=== PATIENT | female | born 1960 | race Caucasian/White ===

== ENCOUNTER 2019-11-22 00:11 | Emergency (ER) | payer MEDICAID, SELFPAY ==
[2019-11-22 00:12] VITALS: BP 120/69; PULSE 79; RESP 16; TEMP 36.4; O2SAT 96; BMI 25.7
--- NOTE | 2019-11-22 00:39 | RAD_ITS ---
STUDY: X-RAY - RIGHT TIBIA AND FIBULA REASON FOR EXAM: Female, 59 years old. fell -- bruising to upper anterior rt tib fib TECHNIQUE: 2 view(s) of the tibia and fibula were obtained. COMPARISON: None. FINDINGS: Normal visualized tibia. Normal visualized fibula. There is no demonstrated acute fracture. Soft tissue swelling. No radiopaque foreign body. RAD/Tibia & Fibula 2 Views IMPRESSION: Soft tissue swelling. No radiopaque foreign body. Electronically Signed: Pernell Brennan, at 1:02 EDT Tel , Service support ,
--- NOTE | 2019-11-22 00:45 | ED.VISSUMM ---
- ER Visit Summary Date of Service: 11/22/19 Chief Complaint: Leg pain after tripping and falling on the steps History of Present Illness: The patient is a 59 F past medical history of sciatica and carpal tunnel. Prior cholecystectomy. Around 7:00 tonight she was walking up the steps fell landed right on her proximal lower leg. Did not hit her head no LOC no other complaints. No prior surgery to her right leg or knee. Complaint increasing pain. Pain with walking. Physical Examination: Well-appearing middle-aged female. Vital signs stable afebrile. H EENT exam atraumatic nontender. Pupils round reactive light. No facial trauma. No scalp tenderness or trauma. C-spine nontender. Trachea midline. Normal range of motion. Lungs clear to auscultation bilaterally. Heart regular rhythm no murmur. Chest wall nontender. Abdomen soft nontender normal bowel sounds no peritoneal signs. Pelvic girdle intact. Both upper extremities left lower extremity nontender. No signs of trauma. Neurovascular intact. Normal range of motion. No deformity. Right hip thigh and knee are nontender nonswollen. Her proximal tib-fib on the right just below the knee she has bruising and tenderness. No gross bony deformity. Distally the bones nontender. Nondeformed. Right ankle and foot are neurovascular intact with dorsi and plantar flexion. Able to wiggle her toes. Able to lift her right leg off the bed. Neurologically awake and alert with no focal motor deficits. Test Results: Right tibia and fibula x-ray 2 views read by myself the radiologist showed no acute abnormality. No fracture. Emergency Department Course and Treatment: Patient with fall and obvious contusion of the right lower leg x-ray will be obtained to evaluate for possible fracture or other injury. Repeat exam doing well at 1:48 AM. Treatment Plan: Tylenol and Motrin for pain. Ice and elevate. Increase activity as tolerated. Follow-up if not improving. Disposition: Discharge Impression: Acute fall Acute proximal right lower leg contusion This note was generated with [employer] dictation software. It may contain incorrect words, spelling, and punctuation that were not noted in review of the chart prior to signing
--- NOTE | 2019-11-22 01:50 | ED.DEP ---
ED Disposition - Plan for ED Patient: Disposition: Home or Assisted Living Instructions: ED EXTREMITY CONTUSION Lower Referrals: Liban Cordova MD [Primary Care Provider] - 1 Week if not improving Additional Instructions: Ice and elevate your right leg to decrease pain and swelling. The x-rays did not show any bony abnormality. Tylenol and Motrin for pain. This should progressively improve if not follow-up with your doctor. Increase activity as tolerated.
[2019-11-22 01:54] VITALS: BP 110/60
== END 2019-11-22 05:15 | disposition home or self-care (01) ==
PROVIDERS: Emergency Provider Emergency Medicine; PCP Family Medicine
DX: S80.11XA Contusion of right lower leg, initial encounter (principal); F17.200 Nicotine dependence, unspecified, uncomplicated; W10.9XXA Fall (on) (from) unspecified stairs and steps, initial encounter
CPT/HCPCS: 73590; 99284

== ENCOUNTER 2022-08-16 21:07 | Emergency (ER) | payer MEDICAID, SELFPAY ==
[2022-08-16 21:07] VITALS: BP 152/92; PULSE 88; RESP 16; TEMP 36.7; O2SAT 93; BMI 34.2
--- NOTE | 2022-08-16 22:57 | ED.VIS.BACK ---
HPI History of Present Illness Chief Complaint: Back Informant: patient Narrative Narrative: Patient states all day today her chronic low back pain that she has had since she had a [place]disce[place] [address] Love has been worse due to overuse. No acute injury. She has chronic discomfort in her low back, it is the same pain that is worse than usual. She chronically has intermittent shooting pains down both lower extremities, that is no different today and not currently present. She denies any bowel or bladder dysfunction or saddle anesthesia. She is looking for something for pain right now, she states I am not looking to get prescriptions for narcotics. Additionally, she states for months she has been having intermittent right upper quadrant pain. She is a little bit of it right now. She states it seems to get better after she eats, making it temporarily go away. No radiating into the back, no jaundice, itching, confusion, other neurologic symptoms. She denies any melena or bright red blood per rectum. No nausea or vomiting. PFSH PFSH no medical history Home Medications meloxicam 7.5 mg tablet 7.5 mg PO DAILY #14 tabs 08/16/22 [Rx Last Taken Unknown] pantoprazole 40 mg tablet,delayed release 40 mg PO DAILY #30 tabs 08/16/22 [Rx Last Taken Unknown] Allergy/AdvReac Type Severity Reaction Status Date / Time morphine Allergy Severe Nausea/Vom/ Verified 08/16/22 21:10 Diarrhea acetaminophen [From Vicodin] AdvReac Nausea Verified 08/16/22 21:10 cortisone AdvReac Nausea Verified 08/16/22 21:10 hydrocodone [From Vicodin] AdvReac Nausea Verified 08/16/22 21:10 Surgical History (Updated 08/16/22 @ 22:[address] Bladimir Hicks MD) H/O microdiscectomy Social History Smoking Status: Current every day smoker ROS ROS ED Constitutional Constitutional ED: Denies chills or fever(s) Gastrointestinal Gastrointestinal: Reports abdominal pain; Denies constipation, fecal incontinence, hematemesis, hematochezia, melena, nausea or vomiting Genitourinary Genitourinary ED: Reports other Details: no urinary retention ; Denies abdominal discomfort or urinary incontinence Musculoskeletal Musculoskeletal: Reports as per HPI and back pain; Denies neck pain Integumentary Denies rash or wounds Neurologic Neurologic: Reports paresthesias RLE and LLE; Denies headache(s) or weakness EXAM Physical Exam Const Vital Signs: 08/16/22 21:07 Temperature 98.0 F Temperature Source Temporal Pulse Rate 88 Respiratory Rate 16 Blood Pressure 152/92 H Blood Pressure Mean 112 Pulse Ox 93 Oxygen Delivery Method Room Air Positive well nourished and well developed General Appearance ED: well developed and NAD HEENT Negative for trauma or tenderness Eyes PERRL and EOMs intact bilaterally Neck full ROM and supple GI normal to inspection, nondistended, normoactive bowel sounds, soft to palpation, non-tender and non-distended Back/Spine normal to inspection Lumbar Spine / Lower Back: ROM limited and straight leg raise negative bilaterally; Negative for lumbar spinal tenderness or paraspinal muscle tenderness Extremity normal to inspection, full ROM and no pedal edema Neuro oriented x3 and no sensory deficits noted Neuro Narrative: Normal gait Sensorium / Orientation: alert Motor Exam: strength 5/5 throughout and clonus absent Deep Tendon Reflexes: Rt Patellar (L4): 2+, Lt Patellar (L4): 2+, Rt Ankle (S1): 2+ and Lt Ankle (S1): 2+ Deep Tendon Reflexes Back: Rt Patellar (L4): 2+, Lt Patellar (L4): 2+, Rt Ankle (S1): 2+ and Lt Ankle (S1): 2+ Plantar Reflex: Downgoing: bilateral Psych mental status grossly normal and thought process normal Skin no rashes or lesions noted and no wounds MDM MDM MDM Narrative Medical decision making narrative: Treated here with Toradol, Norflex, and tramadol since he declared allergy to [place], which is not an allergy it is nausea. She is okay getting a prescription for short-term anti-inflammatory, as well as Protonix for what may be a duodenal ulcer given her symptoms. I offered to obtain blood work including liver enzymes, but she would prefer not to wait and will follow-up with her doctor, so declines that for now. Discharge Plan Triage Chief Complaint: Back ED Provider: Bladimir Hicks Dx/Rx/DC Orders Clinical Impression: Acute exacerbation of chronic low back pain, Intermittent right upper quadrant abdominal pain Instructions: ED Back and Neck Pain, General Prescriptions: New pantoprazole 40 mg tablet,delayed release (DR/EC) 40 mg PO DAILY Qty: 30 0RF meloxicam 7.5 mg tablet 7.5 mg PO DAILY Qty: 14 0RF Primary Care Provider: Liban Cordova Referrals: Liban Cordova MD [Primary Care Provider] - 1-2 Weeks Disposition Disposition: Home, Self Care
[2022-08-16] MEDS: Orphenadrine 60 MG/2 ML Ampul IM (23:07)
[2022-08-16] MEDS: Ketorolac 60 MG/2 ML Vial IM (23:07)
[2022-08-16] MEDS: traMADol 50 MG Tablet PO (23:07)
== END 2022-08-16 23:41 | disposition home or self-care (01) ==
PROVIDERS: Emergency Provider Emergency Medicine; PCP Family Medicine; Visit Provider Emergency Medicine
DX: M54.50 Low back pain, unspecified (principal); R10.11 Right upper quadrant pain; G89.29 Other chronic pain; F17.200 Nicotine dependence, unspecified, uncomplicated
CPT/HCPCS: 96372; 99283

== ENCOUNTER 2022-10-10 19:12 | Emergency (ER) | payer MEDICAID, SELFPAY ==
[2022-10-10 19:14] VITALS: BP 150/93; PULSE 72; RESP 18; TEMP 36.3; O2SAT 98; BMI 35.1
--- NOTE | 2022-10-10 19:20 | RAD_ITS ---
STUDY: X-RAY CHEST REASON FOR EXAM: Female, 62 years old. PAIN WITH INSPIRATION TECHNIQUE: Single AP portable view of the chest. COMPARISON: None. FINDINGS: The lungs are clear and expanded. Stable small calcified granuloma of the right apex. There is no demonstrated pleural abnormality. Normal size heart. There are calcified mediastinal lymph nodes. Normal visualized pulmonary arteries. Normal visualized aortic arch and descending thoracic aorta. Normal visualized thoracic spine. Normal visualized ribs, clavicles, and shoulders. There is no demonstrated abnormality of the visualized soft tissue structures of the upper abdomen. RAD/Chest 1 View (Portable) IMPRESSION: No definite acute or significant abnormality seen. Electronically Signed: Petey No MD at 19:48 EDT ,
--- NOTE | 2022-10-10 20:00 | EX.ED.DYSGE1 ---
HPI History of Present Illness Chief Complaint: Shortness of Breath Detail of Chief Complaint: Right flank pain Informant: patient Onset/Context/Timing Onset: Days Narrative Narrative: Patient presents with pain to the right flank area for the past week. She states pain seems to be much worse today. She does have urinary frequency but states that is not abnormal for her. No dysuria. She is currently on Celebrex and Flexeril for back pain. She states sometimes it hurts worse with a deep breath but she does not feel short of breath. She has a cough which she attributes to her smoker's cough that is not changed from baseline. [facility] Medical History Chronic back pain Home Medications meloxicam 7.5 mg tablet 7.5 mg PO DAILY #14 tabs 08/16/22 [Rx Last Taken Unknown] pantoprazole 40 mg tablet,delayed release 40 mg PO DAILY #30 tabs 08/16/22 [Rx Last Taken Unknown] cyclobenzaprine 10 mg tablet 10 mg PO TID PRN Muscle Spasm #20 TABLETS 10/10/22 [Rx Last Taken Unknown] oxycodone-acetaminophen 5 mg-325 mg tablet (Percocet) 1 tab PO Q8H PRN pain 3 days #10 tabs 10/10/22 [Rx Last Taken Unknown] Allergy/AdvReac Type Severity Reaction Status Date / Time morphine Allergy Severe Nausea/Vom/ Verified 10/10/22 19:16 Diarrhea acetaminophen [From Vicodin] AdvReac Nausea Verified 10/10/22 19:16 cortisone AdvReac Nausea Verified 10/10/22 19:16 hydrocodone [From Vicodin] AdvReac Nausea Verified 10/10/22 19:16 Surgical History H/O microdiscectomy Social History Smoking Status: Current every day smoker tobacco type: cigarettes ROS ROS ED Constitutional Constitutional ED: Denies chills or fever(s) Eyes Eyes: Denies change in vision or discharge from eye(s) ENT ENT ED: Denies discharge from eye(s) or sore throat Cardiovascular Cardiovascular: Denies chest pain or palpitations Respiratory/Chest Respiratory/Chest: Reports cough; Denies dyspnea Gastrointestinal Gastrointestinal: Denies abdominal pain, diarrhea, nausea or vomiting Genitourinary Genitourinary ED: Reports urinary frequency; Denies dysuria Musculoskeletal Musculoskeletal: Reports back pain; Denies extremity pain Integumentary Denies Abrasions or rash Neurologic Neurologic: Denies headache(s) or weakness Psychiatric Psychiatric: Denies anxiety or depression Allergic/Immunologic Allergic/Immunologic ED: Denies lip swelling or urticaria EXAM Physical Exam Const Vital Signs: 10/10/22 19:14 10/10/22 20:13 Temperature 97.4 F L Temperature Source Temporal Pulse Rate 72 Respiratory Rate 18 Blood Pressure 150/93 H Blood Pressure Mean 112 Pulse Ox 98 Oxygen Delivery Method Room Air Room Air Positive well nourished and well developed General Appearance ED: well developed HEENT Reports normocephalic and head/scalp atraumatic Eyes PERRL and EOMs intact bilaterally Neck supple Chest Wall inspection of chest normal and palpation of chest normal Resp normal respiratory effort and clear to auscultation bilaterally Cardio regular rate and regular rhythm GI normal to inspection, nondistended, normoactive bowel sounds Palpation: soft Back/Spine Back/Spine Narrative: Reproducible tenderness in the lower thoracic and upper lumbar paraspinal muscles, right greater than left. No significant midline tenderness. Extremity normal to inspection Neuro oriented x3 and no sensory deficits noted Sensorium / Orientation: alert Motor Exam: strength 5/5 throughout Psych mental status grossly normal Skin no rashes or lesions noted MDM MDM MDM Narrative Medical decision making narrative: Labwork obtained to evaluate for leukocytosis, anemia, and electrolyte derangement. Urinalysis obtained to evaluate for infection/hematuria. Chest x-ray obtained to evaluate for acute lung pathology, cardiac size, or mediastinal abnormality. Patient given oxycodone for pain. Lab Data Attestation: I reviewed the patient's lab results. Labs: Laboratory Results - last 24 hr 10/10/22 10/10/22 10/10/22 20:10 20:15 20:15 WBC 7.5 RBC 4.87 Hgb 15.7 H Hct 47.2 H MCV 96.9 MCH 32.2 H MCHC 33.3 RDW Std Deviation 47.4 H RDW Coeff of [place] 13.3 Plt Count 307 MPV 9.3 Immature Gran % (Auto) 0.400 Neut % (Auto) 61.6 Lymph % (Auto) 27.8 [place] % (Auto) 7.1 Eos % (Auto) 2.4 Baso % (Auto) 0.7 Absolute Neuts (auto) 4.6 Absolute Lymphs (auto) 2.08 Nucleated RBC % 0 Sodium 139 Potassium 4.0 Chloride 104 Carbon Dioxide 31.0 Anion Gap 4 L BUN 14 Creatinine 1.01 Estim Creat Clear Calc 49.00 Est GFR (MDRD) Af Amer 72 Est GFR (MDRD) Non-Af 59 L BUN/Creatinine Ratio 13.9 Glucose 100 Calcium 9.0 Urine Color Yellow Urine Clarity Sl. Cloudy Urine pH 8.0 Ur Specific [place] 1.015 Urine Protein 15 H Urine Glucose (UA) Normal Urine Ketones 5 H Urine Occult Blood Negative Urine Nitrite Negative Urine Bilirubin Negative Urine Urobilinogen 1 H Ur Leukocyte Esterase 25 H Urine RBC 0 SEEN Urine WBC 0 SEEN Ur Squamous Epith Cells 0-5 SEEN Amorphous Sediment 1+ Urine Bacteria 0 SEEN Urine Mucus 0 SEEN Radiography Chest X-Ray - ED: 1 View, Read by ED Physician, Normal, Heart, Lungs and Mediastinum Diagnostic Testing: Clinical Impression(s) from Imaging Studies Chest X-Ray 10/10/22 19:20 IMPRESSION: No definite acute or significant abnormality seen. Electronically Signed: Petey No MD at 19:48 EDT , Treatment and Re-Evaluation :: CBC was normal white count. Hemoglobin concentrated at 15.7. Chemistry studies unremarkable with normal renal function. Urinalysis reveals no sign of acute infection. Chest x-ray per my interpretation reveals no evidence of infiltrate or acute abnormality. Radiology interpretation is reviewed and agrees. Clinically the patient's pain is musculoskeletal in nature. She is already on Celebrex and Flexeril, although states she is almost out of Flexeril. I did do an [facility] report. She has not had any narcotic prescriptions. She will be given a prescription for Percocet as well as a refill on her Flexeril. Return instructions given. Discharge Plan Triage Chief Complaint: Shortness of Breath ED Provider: Yudith Fitzgerald Dx/Rx/DC Orders Clinical Impression: Musculoskeletal back pain Instructions: ED Back Pain (Acute or Chronic) Prescriptions: New cyclobenzaprine 10 mg tablet 10 mg PO TID PRN (Reason: Muscle Spasm) Qty: 20 0RF oxycodone-acetaminophen [Percocet] 5-325 mg tablet 1 tab PO Q8H PRN (Reason: pain) 3 Days Qty: 10 0RF No Action pantoprazole 40 mg tablet,delayed release (DR/EC) 40 mg PO DAILY Qty: 30 0RF meloxicam 7.5 mg tablet 7.5 mg PO DAILY Qty: 14 0RF Primary Care Provider: Liban Cordova Referrals: Liban Cordova MD [Primary Care Provider] - 1 Week Disposition Disposition: Home, Self Care
[2022-10-10] MEDS: oxyCODONE 5 MG Tablet PO (20:06)
[2022-10-10 20:21] LABS: Bacteria 0 SEEN /hpf (None Seen); Mucous, Urine 0 SEEN /hpf (<or=2+); Red Blood Cells-Urine 0 SEEN /hpf (0-5); White Blood Cells 0 SEEN /hpf (0-5)
[2022-10-10 20:22] LABS: Absolute Lymphocyte Count 2.08 X10^3/uL (0.83-4.51); Absolute Neutrophil Count 4.6 X10^3/uL (2.0-7.7); Basophil# 0.05 X10^3/uL; Basophil% 0.7 % (0-1); Eosinophil# 0.18 X10^3/uL; Eosinophils% 2.4 % (0-5); Hematocrit 47.2 % (37-47); Hemoglobin 15.7 g/dL (12.0-15.0); Lymphocyte # 2.08 X10^3/ul (0.83-4.51); Lymphocyte % 27.8 % (19-41); Mean Corp Hgb Conc 33.3 g/dL (32-36); Mean Corpuscular Hgb 32.2 pg (27.0-32.0); Mean Corpuscular Volume 96.9 fL (81-99); Mean Platelet Vol. 9.3 fl (6.2-12.0); Monocyte# 0.53 X10^3/uL; Monocyte% 7.1 % (0-10); NRBC Flagged by Analyzer 0 % (0-5); Neutrophil % 61.6 % (47-70); Platelet Count 307 K/mm3 (150-450); RBC Distribution Width CV 13.3 % (11.6-14.6); RBC Distribution Width SD 47.4 fl (35.1-43.9); Red Blood Count 4.87 M/mm3 (4.2-5.4); White Blood Count 7.5 K/mm3 (4.4-11.0)
[2022-10-10 20:24] LABS: Color, Urine Yellow (Yellow); Glucose, Dipstick Normal (Normal); Ketone-Dipstick 5 mg/dl (Negative); Leukocyte Esterase-Dipstick 25 /ul (Negative); Nitrite-Dipstick Negative (Negative); Occult Blood-Urine Negative /ul (Negative); Protein-Dipstick 15 mg/dl (Negative); Specific Gravity, Urine 1.015 (1.002-1.030); Urine Bilirubin Dipstick Negative (Negative); Urine Clarity Sl. Cloudy (Clear); Urine Urobilinogen 1 mg/dl (Normal)
[2022-10-10 20:36] LABS: Anion Gap 4 (5-15); BUN 14 mg/dL (7-18); BUN/Creat Ratio 13.9 RATIO (10-20); Chloride 104 mmol/L (98-107); Creatinine, Serum 1.01 mg/dL (0.55-1.02); EST Glomerular Filtration Rate 59 mL/min (>60); Est Glom Filt Rate - Afr Amer 72 mL/min (>60); Glucose 100 mg/dL (74-106); Sodium Level 139 mmol/L (136-145)
[2022-10-10 20:36] LABS: Amorphous Sediment 1+; Squamous Epithelial Cells - UA 0-5 SEEN /hpf (5-10)
[2022-10-10 22:29] VITALS: RESP 16; O2SAT 93
== END 2022-10-10 22:37 | disposition home or self-care (01) ==
PROVIDERS: Emergency Provider Emergency Medicine; PCP Family Medicine; Visit Provider Emergency Medicine
DX: M54.89 Other dorsalgia (principal); F17.210 Nicotine dependence, cigarettes, uncomplicated
CPT/HCPCS: 71045; 80048; 81001; 85025; 94760; 99282; A4216

== ENCOUNTER 2022-10-12 13:03 | Emergency (ER) | payer MEDICAID, SELFPAY ==
[2022-10-12 13:05] VITALS: BP 152/92; PULSE 94; RESP 14; TEMP 36.1; O2SAT 96; BMI 34.7
--- NOTE | 2022-10-12 13:15 | ED.RN ---
PT STATES SHE TOOK PERCOCET PRIOR TO COMING INTO ER. KATHE SIMONS AWARE.
--- NOTE | 2022-10-12 13:29 | EDS_ITS ---
HPI <KATHE Gayle - Last Filed: 10/12/22 16:20> History of Present Illness Chief Complaint: Back Narrative Narrative: Patient presenting today due to an exacerbation of her chronic lower back pain. She reports that she has had sharp nonradiating pain and muscle spasms on the lower right side for over a week now. She states that this does feel different than her usual chronic lumbar back pain. She denies any paresthesias. She was seen here 10/10/2022 and was given Percocet and Flexeril and reports that it is helping some, but she is still in a lot of pain. She is supposed to see an orthopedic back specialist on October 25. She denies any fever, chills, bowel/bladder incontinence, saddle paresthesia, history of IV drug use. She denies any urinary symptoms such as dysuria, hematuria, or increased urinary frequency. PFSH <KATHE Gayle - Last Filed: 10/12/22 16:20> [facility] Medical History Chronic back pain Home Medications meloxicam 7.5 mg tablet 7.5 mg PO DAILY #14 tabs 08/16/22 [Rx Last Taken Unknown] pantoprazole 40 mg tablet,delayed release 40 mg PO DAILY #30 tabs 08/16/22 [Rx Last Taken Unknown] cyclobenzaprine 10 mg tablet 10 mg PO TID PRN Muscle Spasm #20 TABLETS 10/10/22 [Rx Last Taken Unknown] oxycodone-acetaminophen 5 mg-325 mg tablet (Percocet) 1 tab PO Q8H PRN pain 3 days #10 tabs 10/10/22 [Rx Last Taken Unknown] naproxen 500 mg tablet (Naprosyn) 500 mg PO BID PRN pain #20 tabs 10/12/22 [Rx Last Taken Unknown] Allergy/AdvReac Type Severity Reaction Status Date / Time morphine Allergy Severe Nausea/Vom/ Verified 10/12/22 13:12 Diarrhea acetaminophen [From Vicodin] AdvReac Nausea Verified 10/12/22 13:12 cortisone AdvReac Nausea Verified 10/12/22 13:12 hydrocodone [From Vicodin] AdvReac Nausea Verified 10/12/22 13:12 Surgical History H/O microdiscectomy Social History Smoking Status: Current every day smoker tobacco type: cigarettes ROS <KATHE Gayle - Last Filed: 10/12/22 16:20> ROS ED Constitutional Constitutional ED: Denies chills, fever(s) or sweats Cardiovascular Cardiovascular: Denies chest pain Respiratory/Chest Respiratory/Chest: Denies cough or dyspnea Gastrointestinal Gastrointestinal: Denies abdominal pain, nausea or vomiting Genitourinary Genitourinary ED: Denies dysuria, hematuria or urinary urgency Musculoskeletal Musculoskeletal: Reports back pain Integumentary Denies abscess, Abrasions or rash Neurologic Neurologic: Denies paresthesias or weakness Psychiatric Psychiatric: Denies anxiety or depression EXAM <KATHE Gayle - Last Filed: 10/12/22 16:20> Physical Exam Const Vital Signs: 10/12/22 13:05 10/12/22 14:32 Temperature 97 F L Temperature Source Temporal Pulse Rate 94 Respiratory Rate 14 17 Blood Pressure 152/92 H Blood Pressure Mean 112 Pulse Ox 96 Oxygen Delivery Method Room Air Positive well nourished, well developed and no apparent distress General Appearance ED: well developed HEENT Reports normocephalic and head/scalp atraumatic Mouth ED: Yes moist mucous membranes normal Eyes PERRL and EOMs intact bilaterally Neck full ROM and supple Chest Wall inspection of chest normal Resp normal respiratory effort and clear to auscultation bilaterally Cardio regular rate and regular rhythm GI soft to palpation, non-tender, non-distended and no masses Back/Spine normal ROM and normal to inspection Back/Spine Narrative: Lumbar paraspinal tenderness on the right side. No midline tenderness. Extremity normal to inspection and full ROM Neuro oriented x3, CN's II-XII intact bilaterally, moves all extremities, no focal mot or deficits and no sensory deficits noted Sensorium / Orientation: awake and alert Motor Exam: strength 5/5 throughout Psych mental status grossly normal and thought process normal Skin no rashes or lesions noted and no wounds <Dr. Mac Dawson DO - Last Filed: 10/14/22 17:04> Physical Exam Const Vital Signs: 10/12/22 13:05 10/12/22 14:32 Temperature 97 F L Temperature Source Temporal Pulse Rate 94 Respiratory Rate 14 17 Blood Pressure 152/92 H Blood Pressure Mean 112 Pulse Ox 96 Oxygen Delivery Method Room Air [facility] <KATHE Gayle - Last Filed: 10/12/22 16:20> [facility] Narrative Medical decision making narrative: Patient presenting today due to an exacerbation of her chronic lower back pain that she has had now for a week. She was seen here 2 days ago was given a prescription for Percocet and Flexeril. Labs were obtained at that time were unremarkable. she was given Toradol here for pain. I have considered cauda equina syndrome and spinal abscess but these are unlikely given patient's presentation. I do not think that any imaging is indicated as this is a chronic issue for patient and she did not have any recent injury to her back. This does seem like a muscular strain as she is also having muscle spasms in her right lumbar spine. She still has Flexeril and does not need any more of this, I have given her prescription for naproxen. She will be discharged home in stable condition and is to follow-up with orthopedics. She is comfortable with plan. <Dr. Mac Dawson, - Last Filed: 10/14/22 17:04> [facility] Treatment and Re-Evaluation Narrative: I, Dr Dawson, have reviewed the above progress note and course of action in the ER; agree with the above. I have personally seen and evaluated this patient, gone over history and physical, and discussed disposition and treatment plan with the patient. Discharge Plan Triage Chief Complaint: Back ED Midlevel Provider: Jesenia Flanagan ED Provider: Mac Dawson Dx/Rx/DC Orders Clinical Impression: Lumbar back pain Instructions: ED Back Pain (Acute or Chronic) Prescriptions: New naproxen [Naprosyn] 500 mg tablet 500 mg PO BID PRN (Reason: pain) Qty: 20 0RF No Action pantoprazole 40 mg tablet,delayed release (DR/EC) 40 mg PO DAILY Qty: 30 0RF meloxicam 7.5 mg tablet 7.5 mg PO DAILY Qty: 14 0RF cyclobenzaprine 10 mg tablet 10 mg PO TID PRN (Reason: Muscle Spasm) Qty: 20 0RF oxycodone-acetaminophen [Percocet] 5-325 mg tablet 1 tab PO Q8H PRN (Reason: pain) 3 Days Qty: 10 0RF Primary Care Provider: Liban Cordova Referrals: Liban Cordova MD [Primary Care Provider] - 3-5 Days Activity Restrictions/Additional Instructions: Please follow-up with orthopedic doctor, return for any worsening symptoms. Disposition Disposition: Home, Self Care Discharge Date/Time: 10/12/22 14:38
[2022-10-12] MEDS: Ketorolac 15 MG/ML Vial IM (13:56)
[2022-10-12 14:32] VITALS: RESP 17
== END 2022-10-12 14:38 | disposition home or self-care (01) ==
LOC: ED 14:05
PROVIDERS: Emergency Provider Emergency Medicine; PCP Family Medicine; Visit Provider Emergency Medicine
DX: M54.50 Low back pain, unspecified (principal); G89.29 Other chronic pain; F17.210 Nicotine dependence, cigarettes, uncomplicated
CPT/HCPCS: 96372; 99282